=== PATIENT | male | born 1995 | race Caucasian/White ===

== ENCOUNTER → 2021-08-07 | Outpatient (CLI) | payer BC | LOC: M WUC 14:56 | PROVIDERS: ATTEND Orthopaedic Surgery Sports Medicine | DX: E03.9 Hypothyroidism, unspecified (principal) ==

== ENCOUNTER → 2021-09-25 | Outpatient (CLI) | payer BC | LOC: M SOG 13:15 | PROVIDERS: ATTEND Orthopaedic Surgery Sports Medicine | DX: S76.201A Unspecified injury of adductor muscle, fascia and tendon of right thigh, initial encounter (principal); S00.33XA Contusion of nose, initial encounter; X58.XXXA Exposure to other specified factors, initial encounter; Y92.9 Unspecified place or not applicable; Y93.9 Activity, unspecified; Y99.9 Unspecified external cause status ==

== ENCOUNTER → 2021-10-22 | Outpatient (CLI) | payer OTHER | LOC: M WUC 10:17 | PROVIDERS: ATTEND Physician Assistant | DX: M25.512 Pain in left shoulder (principal) ==